=== PATIENT | male | born 1935 | race Caucasian/White ===

== ENCOUNTER → 2017-05-23 | Outpatient (CLI) | payer MEDICARE ==
[~2017-05-23] MED LIST: BENICAR HCT 401 EAC1 PEG; CARBIDOPA-LEVO1 EAC5 PO; CELEBREX200 MG PO; CITALOPRAM HBR40 MG PO; DAILY VALUE1 EACH PO; FLUDROCORTISON0.1 MG PO; GLIMEPIRIDE2 MG PO; METFORMIN HCL1000 MG PO; METFORMIN HCL500 MG PO; METOPROLOL SUCC50 MG PO; MIDODRINE HCL10 MG PO; PRAVASTATIN SOD10 MG PO; SINEMET 25-1001 EACH PO; TAMSULOSIN HCL0.4 MG PO; TERBINAFINE HC250 MG PO; VESICARE10 MG PO; VITAMIN C1000 M2 PO; VITAMIN D-32000 UNIT PO; ZOLPIDEM TARTRA10 MG PO
--- NOTE | 2017-05-23 12:31 | Diagnostic Imaging Report ---
PROCEDURE:CHEST 2 VIEWS TECHNIQUE:PA and lateral chest INDICATION:Shortness of breath COMPARISON:None. FINDINGS: Left lower lobe alveolar opacity. Lungs are otherwise clear. No pleural effusions. Normal heart size and central vasculature. Mildly tortuous thoracic aorta. Intact skeleton with flowing osteophytosis. CONCLUSION: Left lower lobe airspace opacity consistent with atelectasis with or without superimposed pneumonia. Dictated by: Cheng Marrufo M.D. on 05/23/2017 at 12:31 Electronically approved by: Cheng Marrufo M.D. on 05/23/2017 at 12:31
== END ==
LOC: RAD 11:57
DX: R06.02 Shortness of breath (principal); J98.11 Atelectasis
CPT/HCPCS: 71046

== ENCOUNTER 2017-06-02 18:14 | Emergency (ER) | payer MEDICARE ==
[~2017-06-02] VITALS: Ht 177.8 cm; Wt 88.5 kg
--- OUTSIDE RECORDS SUMMARY | 2017-06-02 18:17 | XMS REPORT | Clinical Summary ---
Author Author [employer] Address Unknown Phone Unavailable Care Team Providers Care Aoc Airspace Control Officer Name Role Phone Rose Michael PCP Allergies Not on File Current Medications Not on file Active Problems Not on file Social History Tobacco Use Types Packs/Day Years Used Date Never Assessed Sex Assigned at Date Recorded Not on file Last Filed Vital Signs Not on file Plan of Treatment Health Maintenance Due Date Last Done Comments ZOSTER VACCINE 1996 PNEUMOCOCCAL 02/05/2001 POLYSACCHARIDE VACCINE AGE 65 AND OVER PNEUMOCOCCAL-13 02/05/2001 INFLUENZA VACCINE 10/23/2016 Results Not on fileafter 06/01/2016 Insurance Payer Benefit Subscriber ID Type Phone Address Plan / Group AARP AARP xxxxxxxxxxx Commercial SUPPLEMENT MEDICARE MEDICARE xxxxxxxxxx Medicare [place], [place] PART B
--- OUTSIDE RECORDS SUMMARY | 2017-06-02 18:17 | XMS REPORT ---
[facility] Address [facility] Phone Unavailable Care Team Providers Care Entry Level Installation Technician Name Role Phone MAGUE DELANEY Unavailable Unavailable Problems This patient has no known problems. Allergies, Adverse Reactions, Alerts This patient has no known allergies or adverse reactions. Medications This patient has no known medications. Results Test Description Test Time Test Comments Text Results Atomic Results Result Comments CHEST 2 VIEWS [place] [address] Patient Name: MJ OMALLEY MR #: [id number] : 1935 Age/Sex: 82/M Req # : [id number] Adm Physician: Ordered by: MAGUE DELANEY MD Report #: [id number] Location: [facility] Room/Bed: Procedure: [id number] DX/CHEST 2 VIEWS Exam Date: Exam Time: REPORT STATUS: Signed PROCEDURE: CHEST 2 VIEWS TECHNIQUE: PA and lateral chest INDICATION: Shortness of breath COMPARISON: None. FINDINGS: Left lower lobe alveolar opacity. Lungs are otherwise clear. No pleural effusions. Normal heart size and central vasculature. Mildly tortuous thoracic aorta. Intact skeleton with flowing osteophytosis. CONCLUSION: Left lower lobe airspace opacity consistent with atelectasis with or without superimposed pneumonia. Dictated by: Jennie Marrufo M.D. on 05/23/2017 at 12:31 Electronically approved by: Jennie Marrufo M.D. on 05/23/2017 at 12:31 Dictated By: JENNIE MARRUFO MD [id number] Transcribed By: DIANA on 05/23/17 1231 COPY TO: MAGUE DELANEY MD
--- NOTE | 2017-06-02 18:48 | Diagnostic Imaging Report ---
History:Fall Comparison studies:None Technique: Axial images were obtained from the skull base to the vertex. Coronal and sagittal images reconstructed from the axial data. Intravenous contrast: None Findings: Scalp/skull: No abnormalities. Extra-axial spaces: No masses. No fluid collections. Brain sulci: Mildly prominent. Ventricles: Mild compensatory dilatation. No hydrocephalus. Parenchyma: Describe hypodensities in the supratentorial white matter are small vessel ischemic changes. No masses, hemorrhage, acute or chronic cortical vascular insults. Sellar/suprasellar region: No abnormalities. Craniocervical junction: Patent foramen magnum. No Chiari one malformation. Incidental findings: Atherosclerotic calcifications in the carotid siphons and vertebral arteries . Impression: No acute abnormalities. Chronic findings: 1. Mild generalized volume loss. 2. Mild supratentorial white matter small vessel ischemic changes. Signed by: DR Jose Quijano M.D. on 06/02/2017 6:44 PM
[2017-06-02] MEDS ORDERED: TETANUS/DIPHTHERIA TOX ADULT 0.5 ML SYR IM ONE (19:00)
[2017-06-02 19:08] VITALS: BP 137/87
== END 2017-06-02 19:15 | disposition home or self-care (01) ==
LOC: ER 18:14
DX: S01.81XA Laceration without foreign body of other part of head, initial encounter (principal); W01.0XXA Fall on same level from slipping, tripping and stumbling without subsequent striking against object, initial encounter; Y93.01 Activity, walking, marching and hiking; Y92.008 Other place in unspecified non-institutional (private) residence as the place of occurrence of the external cause
CPT/HCPCS: 70450; 90471; 90714; 99283

== ENCOUNTER → 2017-12-16 | Outpatient (CLI) | payer MEDICARE ==
--- NOTE | 2017-12-16 15:33 | Diagnostic Imaging Report ---
EXAMINATION: MRI of the brain without contrast. HISTORY: Weakness, falling, cerebral infarction COMPARISON: Head CT and 06/02/2017 and brain MRI and 10/14/2015 TECHNIQUE: Sagittal T2; axial DWI, T2, FLAIR, T1-IR, T2 gradient echo; coronal FLAIR. IMAGE QUALITY: Adequate. FINDINGS: Parenchyma: 1. Few scattered and mildly confluent periventricular white matter T2 hyperintense foci, most likely nonspecific chronic microvascular ischemic changes. 2. No mass, hemorrhage, acute or chronic infarcts. Skull: Unremarkable. Vessels: Expected flow voids present in the major arteries and dural sinuses. Extra-axial spaces: No abnormal signal intensity or mass effect. Brain volume: Within normal limits for age. Ventricles: No hydrocephalus or displacement. Foramen magnum: Unremarkable. Sella: Unremarkable. Paranasal / mastoid sinuses: No significant inflammatory disease. IMPRESSION: 1. No acute or chronic infarct. 2. Unchanged mild chronic microvascular ischemic changes. Signed by: Dr. Cathi Serrano M.D. on 12/16/2017 3:30 PM
== END ==
LOC: MRI 13:55
PROVIDERS: ATTEND Internal Medicine
DX: I63.9 Cerebral infarction, unspecified (principal)
CPT/HCPCS: 70551